=== PATIENT | female | born 1955 | race Caucasian/White ===

== ENCOUNTER → 2021-03-08 | Outpatient (CLI) | payer MEDICARE | LOC: M WHC 10:24 | PROVIDERS: ATTEND Nurse Practitioner Women's Health | DX: Z12.31 Encounter for screening mammogram for malignant neoplasm of breast (principal); Z78.0 Asymptomatic menopausal state ==

== ENCOUNTER → 2021-03-08 | Outpatient (CLI) | payer BC | LOC: M WHC 08:09 | PROVIDERS: ATTEND Nurse Practitioner Women's Health | DX: Z53.9 Procedure and treatment not carried out, unspecified reason (principal) ==

== ENCOUNTER → 2021-03-08 | Outpatient (REF) | payer MEDICARE, BC | LOC: M SFHCWAGY 17:24 | PROVIDERS: ATTEND Nurse Practitioner Women's Health | DX: Z12.4 Encounter for screening for malignant neoplasm of cervix (principal); R87.610 Atypical squamous cells of undetermined significance on cytologic smear of cervix (ASC-US) | CPT/HCPCS: 87624; G0123 ==

== ENCOUNTER → 2022-04-22 | Outpatient (REF) | payer MEDICARE | LOC: M SFHCWAGY 17:09 | PROVIDERS: ATTEND Nurse Practitioner Family | DX: Z12.4 Encounter for screening for malignant neoplasm of cervix (principal) | CPT/HCPCS: 87624; G0123 ==

== ENCOUNTER → 2022-04-22 | Outpatient (CLI) | payer BC, MEDICARE | LOC: M WHC 09:57 | PROVIDERS: ATTEND Nurse Practitioner Family | DX: Z12.31 Encounter for screening mammogram for malignant neoplasm of breast (principal) ==

== ENCOUNTER 2023-03-26 06:03 | Day surgery (SDC) | payer MEDICARE ==
[~2023-03-26] VITALS: Ht 160 cm; Wt 112.9 kg
[~2023-03-26 06:03] MED LIST: HYDR12.55 PO; RAMI1CAP26 PO
[2023-03-26] MEDS ORDERED: LR 1,000 ML IV SCH ×2 (06:55→09:30)
[2023-03-26] MEDS ORDERED: fentaNYL 100 MCG/2 ML INJECTION As Ordered ONE (07:09)
[2023-03-26] MEDS ORDERED: LIDOCAINE 2% 100MG/5ML SDV (FOR ANES.) As Ordered ONE (07:09)
[2023-03-26] MEDS ORDERED: MIDAZOLAM INJ 2MG/2ML VIAL As Ordered ONE (07:09)
[2023-03-26] MEDS ORDERED: propofoL 200 MG/20 ML VIAL As Ordered ONE (07:09)
[2023-03-26 07:24] LABS: HEMATOCRIT 45.5 % (36.0-47.0); HEMOGLOBIN 14.6 g/dl (12.0-15.5); MEAN CORPUSCULAR HEMOGLOBIN 30.2 pg (27.0-33.0); MEAN CORPUSCULAR HGB CONC 32.1 g/dl (32.0-36.5); PLATELET COUNT, AUTOMATED 286 10^3/uL (150-450); RED BLOOD COUNT 4.84 10^6/uL (4.00-5.40); WHITE BLOOD COUNT 7.5 10^3/uL (4.0-10.0)
[2023-03-26] MEDS: ceFAZolin SOD 2 GM in IV 1 EA IV ONE (07:40)
[2023-03-26 07:45] LABS: BLOOD UREA NITROGEN 18 MG/DL (9-23); CALCIUM LEVEL 9.4 MG/DL (8.3-10.6); CARBON DIOXIDE LEVEL 26 MMOL/L (20-31); CHLORIDE LEVEL 109 MMOL/L (98-107); CREATININE FOR GFR 0.81 MG/DL (0.55-1.30); GLOMERULAR FILTRATION RATE > 60.0 (>45); GLUCOSE, FASTING 109 MG/DL (74-106); POTASSIUM SERUM 4.4 MMOL/L (3.5-5.1); SODIUM LEVEL 140 MMOL/L (136-145)
[2023-03-26] MEDS ORDERED: METOCLOPRAMIDE INJ 10MG/2ML VIAL As Ordered ONE (07:45)
[2023-03-26] MEDS: LIDOCAINE 1% MDV 20ML VIAL As Ordered ONE (07:45)
[2023-03-26] MEDS ORDERED: ONDANSETRON 4MG 2ML VIAL As Ordered ONE (07:45)
[2023-03-26] MEDS ORDERED: ACETAMINOPHEN 1000MG 100ML IV BAG As Ordered ONE (07:59)
[2023-03-26] MEDS ORDERED: KETOROLAC 60MG 2ML VIAL As Ordered ONE (08:00)
[2023-03-26] MEDS ORDERED: fentaNYL 100 MCG/2 ML INJECTION IV PRN (09:30)
[2023-03-26] MEDS ORDERED: ONDANSETRON 4MG 2ML VIAL IV PRN (09:30)
[2023-03-26] MEDS: oxyCODONE 5MG TAB PO PRN (09:47)
[2023-03-26 11:16] VITALS: BP 151/72; TEMP 98.1; O2SAT 94
== END 2023-03-26 12:00 | disposition home or self-care (01) ==
LOC: M SDC 06:03
PROVIDERS: ATTEND Podiatrist Foot & Ankle Surgery
DX: M21.611 Bunion of right foot (principal); M20.11 Hallux valgus (acquired), right foot; I10 Essential (primary) hypertension; G43.909 Migraine, unspecified, not intractable, without status migrainosus; Z79.899 Other long term (current) drug therapy
CPT/HCPCS: 28299; 36415; 76000; 80048; 85027; C1713; J0131; J0665; J0690; J1100; J1885; J2250; J2405; J2765; J3010

== ENCOUNTER 2024-10-20 06:18 | Day surgery (SDC) | payer MEDICARE ==
[~2024-10-20] VITALS: Ht 160 cm; Wt 102.1 kg
[~2024-10-20 06:18] MED LIST changes: +RAMI10CA64 PO; -RAMI1CAP26 PO; +TYLE650T38 PO
[2024-10-20] MEDS: LR 1,000 ML IV SCH (06:45)
[2024-10-20] MEDS ORDERED: LIDOCAINE 2% 100 MG/5 ML SDV (FOR ANES.) As Ordered ONE (07:02)
[2024-10-20] MEDS ORDERED: MIDAZOLAM INJ 2 MG/2 ML VIAL As Ordered ONE (07:03)
[2024-10-20] MEDS: ceFAZolin SOD 2 GM IV ONCE IV ONE (07:30)
[2024-10-20] MEDS: LIDOCAINE 1% SDV 30 ML VIAL As Ordered ONE (07:38)
[2024-10-20] MEDS ORDERED: dexAMETHasone 4 MG/ML 1 ML VIAL As Ordered ONE (07:52)
[2024-10-20] MEDS ORDERED: ONDANSETRON 4MG 2ML VIAL As Ordered ONE (07:52)
[2024-10-20] MEDS ORDERED: KETOROLAC 30 MG/ML 1 ML VIAL As Ordered ONE (07:53)
[2024-10-20] MEDS ORDERED: ACETAMINOPHEN 1000MG/100ML IV BAG As Ordered ONE (07:53)
[2024-10-20 08:55] VITALS: BP 140/78; TEMP 97.6; O2SAT 96
== END 2024-10-20 09:00 | disposition home or self-care (01) ==
LOC: M SDC 06:18
PROVIDERS: ATTEND Podiatrist Foot & Ankle Surgery
DX: M96.0 Pseudarthrosis after fusion or arthrodesis (principal); T84.84XA Pain due to internal orthopedic prosthetic devices, implants and grafts, initial encounter; Y83.8 Other surgical procedures as the cause of abnormal reaction of the patient, or of later complication, without mention of misadventure at the time of the procedure; M89.9 Disorder of bone, unspecified; I10 Essential (primary) hypertension; Z79.899 Other long term (current) drug therapy; Z90.49 Acquired absence of other specified parts of digestive tract
CPT/HCPCS: 20680; 28297; J0131; J0665; J0690; J1100; J1885; J2250; J2405; J3010

== ENCOUNTER → 2024-11-24 | Outpatient (REF) | payer MEDICARE | LOC: M LAB REF 15:14 | PROVIDERS: ATTEND Podiatrist Foot & Ankle Surgery | DX: L03.115 Cellulitis of right lower limb (principal) ==

== ENCOUNTER → 2024-12-16 | Outpatient (CLI) | payer MEDICARE | LOC: M WHC 12:00 | PROVIDERS: ATTEND Physician Assistant | DX: Z12.31 Encounter for screening mammogram for malignant neoplasm of breast (principal); R92.323 Mammographic fibroglandular density, bilateral breasts ==